=== PATIENT | female | born 1990 ===

== ENCOUNTER 2018-01-24 11:30 | Inpatient (IN) | payer OTHER ==
[~2018-01-24] VITALS: Ht 149.9 cm; Wt 2.3 kg
[~2018-01-24 11:30] MED LIST: CIPRO500 MG PO; DOLOGEN CAPLET1 TAB PO
[2018-02-14] MEDS ORDERED: PRENATE AM TAB1 EACH (07:40)
== END 2018-02-14 12:34 | disposition home or self-care (01) | DRG 766 ==
LOC: LDR 02-11 15:57 → OB/GYN 02-11 15:57 → LDR 02-11 16:47 → OB/GYN 02-11 20:21 → LDR 02-13 11:30 → OB/GYN 02-14 12:34
PROVIDERS: Specialist
PROC: 4A1HXCZ Monitoring of Products of Conception, Cardiac Rate, External Approach (ICD-10-PCS; 2018-02-11)
PROC: 4A033R1 Measurement of Arterial Saturation, Peripheral, Percutaneous Approach (ICD-10-PCS; 2018-02-11)
PROC: 10D00Z1 Extraction of Products of Conception, Low, Open Approach (ICD-10-PCS; principal; 2018-02-11 19:00)
DX: O76 Abnormality in fetal heart rate and rhythm complicating labor and delivery (principal); O69.2XX0 Labor and delivery complicated by other cord entanglement, with compression, not applicable or unspecified; O66.0 Obstructed labor due to shoulder dystocia; Z3A.39 39 weeks gestation of pregnancy; Z37.0 Single live birth

== ENCOUNTER 2018-02-11 12:13 | Outpatient (CLI) | payer OTHER | END 2018-02-11 15:58 | disposition still patient (30) | LOC: OBS/DEL 12:13 | DX: O76 Abnormality in fetal heart rate and rhythm complicating labor and delivery (principal); Z34.83 Encounter for supervision of other normal pregnancy, third trimester ==